=== PATIENT | female | born 1945 | race Caucasian/White ===

== ENCOUNTER 2017-04-09 07:24 | Inpatient (IN) | payer MEDICARE, OTHER ==
[~2017-04-09 07:24] MED LIST: AMLODIPINE BESYL5 MG PO; EFFEXOR XR75 M1 PO; LIPITOR20 M1 PO; LOW DOSE ASPIRI81 M3 PO; MELOXICAM15 M1 PO; METOPROLOL TART25 M1 PO; MULTIPLE VITAM1 EAC2 PO; NEURONTIN300 M1 PO; OMEPRAZOLE20 M4 PO; TRAZODONE HCL100 M1 PO; TYLENOL325 M2 PO; ULTRAM50 M1 PO; XANAX1 M1 PO
[2017-04-09 09:10] LABS: PROTHROMBIN TIME 11.5 SECONDS (9.0-13.6)
[2017-04-10 04:58] LABS: BASO % 0.1 % (0-2); EOS % 0.1 % (0-7); HGB-HEMOGLOBIN 10.5 gm/dl (12.0-15.5); IMMATURE GRANULOCYTES ABSOLUTE 0.03 tho/cmm (0-0.03); IMMATURE GRANULOCYTES PERCENT 0.2 % (0-0.3); LYMPH % 9.9 % (20-45); LYMPH ABSOLUTE COUNT 1.6 tho/cmm (0.8-4.5); MCH (MEAN CORPUSCULAR HGB) 28.6 pg (28.0-32.0); MCHC MEAN CORPUSCULAR HGB CONC 31.8 % (32.0-36.0); MCV (MEAN CELL VOLUME) 89.9 fl (82.0-96.0); MEAN PLATELET VOLUME 9.6 cmc (9.4-12.4); MONO % 6.9 % (0-12); MONOCYTE ABSOLUTE COUNT 1.1 tho/cmm (0.0-1.2); NEUTROPHIL ABSOLUTE COUNT 13.1 tho/cmm (1.6-8.0); NEUTROPHIL-AUTOMATED 13.1 tho/cmm (1.6-8.0); NEUTROPHILS % 82.8 % (40-80); PLATELET COUNT 221 tho/cmm (150-450); RED BLOOD COUNT 3.67 mil/cmm (4.00-5.20); RED CELL DISTRIBUTION WIDTH 12.8 % (12.4-16.4); WHITE BLOOD COUNT 15.8 tho/cmm (4.0-10.0)
[2017-04-11] MEDS ORDERED: ASPIRIN81 M1 PO (13:05)
[2017-04-11] MEDS ORDERED: SENOKOT-S TABL1 EACH PO (13:06)
[2017-04-11] MEDS ORDERED: MILK OF MAGNESIA PO (13:07)
== END 2017-04-11 13:55 | DRG 470 ==
LOC: SHSB 07:24 → ORE 10:24 → 5EA 13:11
PROVIDERS: ADMIT Orthopaedic Surgery Foot and Ankle Surgery
PROC: 0SRD0J9 Replacement of Left Knee Joint with Synthetic Substitute, Cemented, Open Approach (ICD-10-PCS; principal; 2017-04-09)
DX: M17.11 Unilateral primary osteoarthritis, right knee (principal); G62.9 Polyneuropathy, unspecified; F41.9 Anxiety disorder, unspecified; I10 Essential (primary) hypertension; I25.10 Atherosclerotic heart disease of native coronary artery without angina pectoris; K21.9 Gastro-esophageal reflux disease without esophagitis; K58.9 Irritable bowel syndrome, unspecified; Z87.891 Personal history of nicotine dependence; E66.9 Obesity, unspecified; G47.00 Insomnia, unspecified; Z95.1 Presence of aortocoronary bypass graft; K59.00 Constipation, unspecified
CPT/HCPCS: C1713; C1776; J0171; J0690; J1885; J2270; J2795